=== PATIENT | female | born 1995 | race Two or more races ===

== ENCOUNTER 2017-06-02 21:17 | Emergency (ER) | payer SELFPAY | END 2017-06-02 22:00 | disposition home or self-care (01) | LOC: ER 21:17 | DX: L02.416 Cutaneous abscess of left lower limb (principal); L03.116 Cellulitis of left lower limb | CPT/HCPCS: 99283 ==

== ENCOUNTER 2020-04-28 17:33 | Observation (INO) | payer SELFPAY ==
[2017-06-02 21:45] VITALS: BP 138/70
[~2020-04-28] VITALS: Ht 160 cm; Wt 77.1 kg
[~2020-04-28 17:33] MED LIST: SULF1TAB24 PO
[2020-04-28] MEDS ORDERED: IV RINGERS,LACTATED 1000ML 1,000 ML IV SCH (18:00)
[2020-04-28 18:13] LABS: BILIRUBIN,URINE NEGATIVE (NEG); CLARITY,URINE CLEAR; COLOR,URINE YELLOW; NITRITE,URINE NEGATIVE (NEG); PH,URINE 7.5 (<5.0-8.0); PROTEIN,URINE NEGATIVE (NEG-TRACE); UROBILINOGEN,URINE 0.2 mg/dL (0.2 mg/dL)
[2020-04-28 18:17] LABS: BACTERIA,URINE MANY /HPF (0-FEW); RBC,URINE OCC /HPF (0-2)
[2020-04-28 18:18] LABS: WBC,URINE 20-40 /HPF (0-4)
[2020-04-28 18:38] LABS: AMNIO PT NEGATIVE
== END 2020-04-28 19:09 | disposition home or self-care (01) ==
LOC: 3 SO LND 17:33
PROVIDERS: ADMIT Obstetrics & Gynecology; ATTEND Obstetrics & Gynecology
DX: O42.92 Full-term premature rupture of membranes, unspecified as to length of time between rupture and onset of labor (principal); O62.9 Abnormality of forces of labor, unspecified; Z3A.40 40 weeks gestation of pregnancy; Z79.899 Other long term (current) drug therapy
CPT/HCPCS: 36415; 81001; 84112; 87077; 87086; 87186; G0378; G0379; 59025